=== PATIENT | male | born 1990 | race Caucasian/White ===

== ENCOUNTER → 2021-07-17 08:57 | Outpatient (CLI) | payer OTHER, SELFPAY ==
[2021-07-17 09:23] LABS: Basophils # 0.1 K/mm3 (0-0.2); Basophils % 1.1 % (0.1-2.0); Eosinophils # 0.1 K/mm3 (0.0-0.4); Eosinophils % 2.5 % (0.1-12.0); Hematocrit 49.7 % (42.0-52.0); Hemoglobin 16.3 g/dL (14.1-18.0); Lymphocytes # 1.3 K/mm3 (0.7-4.5); Lymphocytes % 26.6 % (10-50); Mean Corpuscular HGB Conc 32.7 g/dL (31.8-35.4); Mean Corpuscular Volume 91.9 fl (80-94); Mean Platelet Volume 7.6 fl (7.4-10.4); Monocytes # 0.4 K/mm3 (0.1-1.0); Monocytes % 7.6 % (1.7-9.3); Neutrophils # 3.1 K/mm3 (1.8-7.8); Neutrophils % 62.3 % (37.0-80.0); Platelet Count 275 K/mm3 (142-424); Red Blood Count 5.41 M/mm3 (4.60-6.20); White Blood Count 4.9 K/mm3 (4.8-10.8)
[2021-07-17 09:51] LABS: Alanine Aminotransferase 57 U/L (12-78); Albumin Level 4.6 g/dl (3.5-5.0); Albumin/Globulin Ratio 1.7 (1.1-1.8); Alkaline Phosphatase 66 U/L (38-126); Anion Gap 14.6 mEq/L (5-15); Aspartate Amino Transferase 42 U/L (17-59); Bilirubin,Total 0.6 mg/dl (0.2-1.3); Blood Urea Nitrogen 12 mg/dl (9-20); Calcium 9.5 mg/dl (8.4-10.2); Carbon Dioxide 27 mmol/L (22.0-30.0); Chloride 105 mmol/L (98-107); Chol/HDL Ratio 5.1 (1-3.5); Cholesterol 179 mg/dl (140-200); Estimated Glomerular Filt Rate 99 ml/min (>60); GFR (African American) 120 ML/MIN (>60); Globulin 2.7 g/dL (1.3-3.2); Glucose 94 mg/dl (74-100); HDL Cholesterol 35 mg/dl (40-60); Potassium 4.6 mmoL/L (3.5-5.1); Sodium 142 mmol/L (136-145); Total Protein,Serum 7.3 g/dl (6.3-8.2); Triglycerides 248 mg/dl (30-150); VLDL Cholesterol 50 mg/dL (0-40)
[2021-07-17 10:02] LABS: Direct LDL Cholesterol 82.28 mg/dL (100-129)
[2021-07-17 10:07] LABS: 25-OH Vitamin D, Total 41.2 ng/mL (30-100)
[2021-07-17 10:22] LABS: Thyroid Stimulating Hormone 2.12 uIU/mL (0.465-4.68)
[2021-07-17 10:40] LABS: Vitamin B12 554 pg/mL (239-931)
== END ==
PROVIDERS: Visit Provider Nurse Practitioner Family
DX: Z00.00 Encounter for general adult medical examination without abnormal findings (principal); R53.83 Other fatigue
CPT/HCPCS: 36415; 80053; 80061; 82306; 82607; 84443; 85025

== ENCOUNTER → 2021-10-10 07:46 | Outpatient (CLI) | payer OTHER, SELFPAY | PROVIDERS: PCP Internal Medicine Adolescent Medicine; Visit Provider Surgery | DX: U07.1 COVID-19 (principal) | CPT/HCPCS: C9803; U0003; U0005 ==

== ENCOUNTER 2021-11-01 06:06 | Day surgery (SDC) | payer OTHER, SELFPAY ==
[2021-10-08 14:27] VITALS: BMI 29.6
[2021-11-01] VITALS (12 sets, daily range): BP systolic 115–137; BP diastolic 69–88; PULSE 59–76; RESP 12–16; TEMP 36.1–43; O2SAT 93–97
--- NOTE | 2021-11-01 06:54 | HMH.ANESCL ---
[facility] [place] Anesthesia Checklist - Structural Data Admitted From: Home Planned Operative Procedure/s: kirill pearcee Consent for Planned Operative Procedure(s) Verified: Yes - Additional verifications Anesthesia Reactions: No Hx Blood Transfusions: No Blood Transfusion Reaction: No - Airway Assessment C-Spine Mobility Assessed: Yes TMJ Mobility Assessed: Yes Dentition: Good Dentition - Neurological Assessment Level of Consciousness: Awake, Alert, Appropriate - Anesthesia Plan Anesthesia Risk discussed: Yes Anesthesia Plan: Patient unable to respond/answer ASA Class: II Anesthesia Type: General [facility] [place] History I have reviewed the patient's past medical history: Yes Medical History: Reports:: MRSA (arm) Denies:: Cancer, Diabetes Mellitus Type 1, Diabetes Mellitus Type 2, Internal Pacemaker, Seizures *Have you ever received a pneumonia vaccine?: No *Have you received a flu vaccine this season?: No Other Medical History: Denies: Blood Transfusion Reaction Anesthesia experience/problems:: none Other Surgeries: Yes: No Previous Surgery. No: Pacemaker Amputation: No Fractures: No - *Social History Last grade of school completed: High school graduate Smoking Status: Never smoker Alcohol Intake: current Alcohol Intake Frequency:: a few times a week Substance Use Type: denies use *Occupational Status:: employed Housing: house Household Members: spouse *Travel in the last 8 weeks: None Family Hx:: No significant family history
--- NOTE | 2021-11-01 08:24 | P.OP_ITS ---
Date of procedure: 11/01/21 Pre-op Diagnosis:: Biliary dyskinesia Post-op Diagnosis:: Chronic cholecystitis Procedure performed:: Laparoscopic cholecystectomy Surgeon:: Felipe Bangura MD CHEST PAIN COORDINATOR:: Semaj Sheffield Anesthesia: GETMirian Estimated blood loss (mL): 10 Operative findings:: Small umbilical hernia noted preoperatively (umbilical trocar site closed with 0 Ethibond) Infundibular thickening Operative note:: After informed consent was obtained, the patient was taken to the operating room and placed in the supine position. General anesthesia was induced and the abdomen was prepped and draped in a sterile fashion. After infiltration with local anesthetic an infraumbilical incision was made. A Veress needle was placed in position. The abdomen was insufflated. A 5 mm optical trocar was placed in position. Under direct visualization, a 12 mm trocar was placed in the subxiphoid position and 2 additional 5 mm trocars were placed in the right upper quadrant. The gallbladder was elevated up and over the liver margin. The tissue around the cystic duct was carefully dissected. 3 clips were placed proximally and the duct was transected with harmonic kendra. Harmonic kendra were then utilized to dissect the gallbladder away from the liver margin with careful attention to the control of the cystic artery. The gallbladder was placed in a retrieval bag and removed through the subxiphoid trocar site. The right upper quadrant was thoroughly irrigated. No active bleeding or bile leak was noted. Fascia at the umbilical trocar site/umbilical hernia and at the subxiphoid trocar site was reapproximated utilizing 0 Ethibond. The remaining trocars were removed. All wounds were irrigated and skin was closed with 4-0 Monocryl in a subcuticular fashion. Steri-Strips were applied. The patient's anesthetic agents were reversed and extubation was completed prior to transfer to recovery in stable condition. Condition: stable Disposition: PACU Specimens:: Gallbladder and contents Complications:: No immediate
--- NOTE | 2021-11-01 08:31 | HMH.ANESI ---
[facility] Anesthesia Record Part I Intake, IV Amount: 1,000 Estimated blood loss (mL): 10 Urine output (mL): 0 Blood Pressure: 115/69 SaO2: 93 Pulse Rate: 62 Respiratory Rate: 16 Temperature: 98.1 F Patient is:: Drowsy, Stable Stable to PACU at:: 08:30
--- NOTE | 2021-11-01 09:10 | SUR.PHASEI ---
0905 detailed report provided to DAVID Carcamo. Pt left in stable condition.
--- NOTE | 2021-11-01 10:27 | HMH.ANESII ---
[facility] Anesthesia Record Part II Discharge Time: 09:04 Destination: Surgical Day Care (OP Surgery) PACU nurse assessment reviewed?: Yes Patient Condition:: Good Anesthesia Complications:: None Swallowing reflex intact?: Yes Cyanosis?: No Blood Pressure: 137/75 Pulse Rate: 65 Temperature: 97.6 F Mental Status: Alert & Oriented Pain level:: 4 Nausea and/or vomitting:: None Intake, IV Amount: 0
== END 2021-11-01 09:30 | disposition home or self-care (01) ==
LOC: OR 06:08
PROVIDERS: PCP Internal Medicine Adolescent Medicine; Visit Provider Surgery
PROC: 0FT44ZZ Resection of Gallbladder, Percutaneous Endoscopic Approach (ICD-10-PCS; CPT 47562; principal; 2021-11-01 07:30)
DX: K81.1 Chronic cholecystitis; Z86.14 Personal history of Methicillin resistant Staphylococcus aureus infection
CPT/HCPCS: 47562; 96374; J0131; J2405; J2710

== ENCOUNTER 2024-05-06 07:03 | Outpatient (CLI) | payer OTHER, SELFPAY ==
[2024-05-06 08:38] LABS: Chol/HDL Ratio 4.9 (1-3.5); Cholesterol 176 mg/dl (140-200); HDL Cholesterol 36 mg/dl (40-60); Triglycerides 278 mg/dl (30-150); VLDL Cholesterol 56 mg/dL (0-40)
[2024-05-06 08:50] LABS: Direct LDL Cholesterol 81.73 mg/dL (100-129)
== END 2024-05-06 23:59 | disposition home or self-care (01) ==
LOC: LAB 07:07
PROVIDERS: PCP Internal Medicine Adolescent Medicine; Visit Provider Physician Assistant
DX: Z86.39 Personal history of other endocrine, nutritional and metabolic disease (principal)
CPT/HCPCS: 36415; 80061

== ENCOUNTER 2025-07-26 14:39 | Outpatient (CLI) | payer OTHER, SELFPAY ==
--- NOTE | 2025-07-26 14:43 | XR_ITS ---
FINAL REPORT CLINICAL HISTORY: FALL, PAIN COMPARISON: None FINDINGS: A single view of the chest with 3 views of the right ribs were obtained. There is no acute cardiopulmonary process. No pneumothorax is identified. No displaced rib fracture identified. IMPRESSION: No acute process. Reviewed, Interpreted and Dictated by Yung Osorio MD Transcribed by Carri Barker Authenticated and . [facility]
--- OUTSIDE RECORDS SUMMARY | 2025-07-26 14:52 | XMS_ITS | Encounter Summary ---
Author Organization Healthcare Address [address] [id number] Care Team Providers Care Patient Services Specialist Name Role Phone Unavailable Primary Care Provider Unavailabl e Reason for Referral * Consultation (Routine) - Closed Specialty Diagnoses / Procedures Referred By Mick vega Referred To Contact Dentist / Pain Medicine Diagnoses Obstructive sleep apnea (adult) (pediatric) Sylvia aWll MD [address] [facility] [address] [place] [address] Phone: tel: fax: Lata Ralph, DDS [address] [place] [address] Phone: tel: fax: Referral ID Status Reason Start Date Expiration Date Visits Re quested Visits Authorized [id number] Closed 05/24/2024 2025 1 1 Encounter Details Date Type Department Care Team (Late st Contact Info) Description 05/24/2024 [facility] [address] [place] [address] Sylvia Wall MD [address] [facility] [address] [place] [address] Obstructive sleep apnea (adult) (pediatric) (Primary Dx) Social History Tobacco Use Types Packs/Day Years Used Date Smoking Tobacco: Never Assessed Sex and Gender Information Value Date Recorded Sex Assigned at Not on file Legal Sex Male 12:47 PM EDT Gender Identity Not on file Sexual Orientation Not on file documented as of this encounter Plan of Treatment Scheduled Referrals Name Type Priority Associated Diagnoses Order Schedule Ambulatory Referral to Orofacial Pain Outpatient Referral Routine Obstructive sleep apnea (adult) (pediatric) Expected: 05/24/2024 (Approximate), Expires: 11/24/2025 documented as of this encounter Visit Diagnoses Diagnosis Obstructive sleep apnea (adult) (pediatric)- Primary documented in this encounter
--- OUTSIDE RECORDS SUMMARY | 2025-07-26 14:52 | XMS_ITS | Clinical Summary ---
Author Organization [facility] Address [address] [place] [address] Care Team Providers Care Working Manager Name Role Phone Unavailable Primary Care Provider Unavailabl e Allergies No known active allergies Social History Tobacco Use Types Packs/Day Years Used Date Smoking Tobacco: Never Smokeless Tobacco: Never Tobacco Cessation:Counseling Given: Not Answered Alcohol Use Standard Drinks/Week Comments Yes 0 (1 standard drink = 0.6 oz pur e alcohol) Sex and Gender Information Value Date Recorded Sex Assigned at Not on file Legal Sex Male 12:47 PM EDT Gender Identity Not on file Sexual Orientation Not on file Last Filed Vital Signs Vital Sign Reading Time Taken Comments Blood Pressure 121/83 06/28/2024 3:12 PM EDT Pulse 93 06/28/2024 3:12 PM EDT Temperature 35.6 C (96 F) 06/28/2024 3:12 PM EDT Respiratory Rate - - Oxygen Saturation 97% 06/28/2024 3:12 PM EDT Inhaled Oxygen Concentration - - Weight 114 kg (251 lb 9.6 oz) 06/28/2024 3:12 PM EDT Height 198.1 cm (6' 6 ) 06/28/2024 3:12 PM EDT Body Mass Index 29.08 06/28/2024 3:12 PM EDT Plan of Treatment Health Maintenance Due Date Last Done Comments Dental Oral Exam 1990 Dental Prophylaxis 1990 Dental X-Ray: Bitewings 1990 Dental X-Ray: Full Mouth 1990 [facility]-Depression Screening 1990 [facility]-HIV Screening 1990 [facility]-Hepatitis C Screening 1990 [facility]-Infant/Child/Adol SDOH Screenings 1990 [facility]-IPV Vaccines (2 of 3 - 4-dose series) 02/17/1996 01/20/1996 [facility]-Varicella Vaccines (1 of 2 - 13+ 2-dose series) 2003 [facility]- SDOH Screenings 2008 [facility]-Adult SDOH Screenings 2008 HPV Vaccines (1 - 3-dose SCD M series) 2017 [id number] Vaccine (1 - season) 2025 [facility]-Influenza Vaccine (#1) 2025 [facility]-DTaP,Tdap,and Td Vaccine s (4 - Td or Tdap) 01/23/2031 01/23/2021, 06/17/2006, 01/20/1996 [facility]-Zoster Vaccines (1 of 2) 2040 [facility]-Hepatitis B Vaccines Completed 002, 03/18/2002, 02/15/2002 [facility]-Obesity Intervention Completed 06/28/2024 [facility]-HIB Vaccines Aged Out No longer e ligible based on patient's age to complete this topic [facility]-Hepatitis A Vaccines Aged Out No longer eligible based on patient's age to complete this topic [facility]-Pneumococcal Vaccine: Pediatrics (0 to 5 Years) and At-Risk Patients (6 to 49 Years) Aged Out No longer eligible b ased on patient's age to complete this topic [facility]-Rotavirus Vaccines Aged Out No lo nger eligible based on patient's age to complete this topic Insurance [facility]
== END 2025-07-26 23:59 | disposition home or self-care (01) ==
PROVIDERS: PCP Internal Medicine Adolescent Medicine
DX: R07.89 Other chest pain (principal); Z91.81 History of falling
CPT/HCPCS: 71101

== ENCOUNTER 2025-08-11 08:10 | Outpatient (CLI) | payer OTHER, SELFPAY ==
--- NOTE | 2025-08-11 08:14 | US_ITS ---
FINAL REPORT TECHNIQUE: Multiple transverse and longitudinal images CLINICAL HISTORY: ACUTE UPPER ABD PAIN/ STATUS POST CHOLECYSTECTOM COMPARISON: None FINDINGS: The gallbladder has been surgically resected. No biliary ductal dilatation is appreciated. No fluid collections are seen. Limited portions of the right liver demonstrate fatty infiltration. Limited portions of the right kidney are unremarkable. Pancreas is largely obscured. IMPRESSION: 1. Fatty infiltration of the liver. 2. Prior cholecystectomy without evidence of biliary ductal dilatation. Reviewed, Interpreted and Dictated by Yaa Damon MD Transcribed by Steph Sidhu Authenticated and [facility]
--- OUTSIDE RECORDS SUMMARY | 2025-08-11 08:21 | XMS_ITS | Clinical Summary ---
Author Organization [facility] Address [address] [place] [address] Care Team Providers Care Food Vendor Name Role Phone Unavailable Primary Care Provider [...] [facility]-HIV Screening 1990 [facility]-Hepatitis C Screening 1990 [facility]-/Child/Adol SDOH Screenings 1990 [facility]-IPV Vaccines (2 of 3 - 4-dose series) 02/17/1996 01/20/1996 [facility]-Varicella Vaccines (1 of 2 - 13+ 2-dose series) 2003 [facility]- SDOH Screenings 2008 [facility]-Adult SDOH Screenings 2008 HPV Vaccines (1 - 3-dose SCD M series) 2017 [id number] Vaccine (1 - season) 2025 [facility]-Influenza Vaccine [...] patient's age to complete this topic Insurance [facility]
--- OUTSIDE RECORDS SUMMARY | 2025-08-11 08:21 | XMS_ITS | Encounter Summary ---
Author Organization Healthcare Address [address] [id number] Care Team Providers Care Director Blood Bank Name Role Phone Unavailable Primary Care Provider Unavailabl e Reason for Referral * Consultation (Routine) - Closed Specialty Diagnoses / Procedures Referred By Mick vega Referred To Contact Dentist / Pain Medicine Diagnoses Obstructive sleep apnea (adult) (pediatric) Sylvia Wall MD [address] [facility] [address] [place] [address] Phone: tel: fax: Lata Ralph, DDS [address] [place] [address] Phone: tel: fax: Referral ID Status Reason Start Date Expiration Date Visits Re quested Visits Authorized [id number] Closed 05/24/2024 2025 1 1 Encounter Details Date Type Department Care Team (Late st Contact Info) Description 05/24/2024 [facility] [address] [place] [address] Sylvia Wall MD [address] [facility] [address] [place] [address] Obstructive sleep apnea (adult) (pediatric) [...]
== END 2025-08-11 23:59 | disposition home or self-care (01) ==
LOC: RAD 08:11
PROVIDERS: PCP Internal Medicine Adolescent Medicine
DX: K76.0 Fatty (change of) liver, not elsewhere classified (principal); R10.10 Upper abdominal pain, unspecified; Z90.49 Acquired absence of other specified parts of digestive tract
CPT/HCPCS: 76700